=== PATIENT | female | born 1960 | race Caucasian/White ===

== ENCOUNTER → 2017-03-20 | Outpatient (CLI) | payer OTHER ==
--- NOTE | 2017-03-20 17:30 | RAD ---
History: Chronic left shoulder pain Study: Two views of the left shoulder Comparison: None Findings: There is severe osteophyte formation about the AC joint with severe osteophyte formation p rojecting inferiorly. Glenohumeral joint is unremarkable. There is no soft tissue calcification. The scapula and visualized left ribs are unremarkable. Impression: Severe inferior osteophyte formation about the AC joint which may be causing impingement Reported By:
--- NOTE | 2017-03-20 17:33 | RAD ---
History: Chronic neck pain Study: 7 views of the cervical spine Findings: There is normal alignment with moderate C5-6 and C6-7 disc space narrowing. There are mild osteophytes about the disc spaces. However there is severe osteophytes about the mid cervical facet joints, right worse than left. No significant uncovertebral joint spurring is demonstrated. Impression: Severe facet joint osteoarthritis and more moderate lower cervical degenerative disc dis ease Reported By:
== END | disposition home or self-care (01) | DRG 556 ==
LOC: RAD 16:33
PROVIDERS: ATTEND Nurse Practitioner Family
DX: M25.512 Pain in left shoulder (principal); M47.892 Other spondylosis, cervical region; M54.2 Cervicalgia; M25.712 Osteophyte, left shoulder
CPT/HCPCS: 72050; 73030

== ENCOUNTER → 2017-04-02 | Outpatient (CLI) | payer OTHER ==
--- NOTE | 2017-04-02 19:41 | MRI ---
Indication: Pain. Exam: MRI left shoulder. Technique: Routine multiplanar multisequence imaging was performed through the left shoulder. Findings: The glenohumeral joint is intact. No fracture or dislocation is seen. The bone marrow sign al is normal throughout. The biceps tendon is intact and in good position. The labrum is intact in g ood position. There is mild fluid signal at the insertion site of the supraspinatus tendon with no s ignificant retraction. The infraspinatus tendon is mildly thickened but intact and there is a small amount of fluid in the subacromial and subdeltoid bursa. There are moderate hypertrophic changes of the AC joint with hooking of the acromion causing moderate narrowing of the acromiohumeral space. Th e bone marrow signal is normal throughout. The labrum and biceps tendon appear intact and in good po sition. There is no significant joint effusion. Impression: Small full-thickness tear at the insertion site of the supraspinatus tendon . Mild infraspinatus tendinopathy and mild subacromial and subdeltoid bursitis . Moderate hypertrophic changes of the AC joint and hooking of the acromion causing moderate narrowing of the acromiohumeral space. Reported By:
== END | disposition home or self-care (01) ==
LOC: RAD 15:44
PROVIDERS: ATTEND Nurse Practitioner Family
DX: M25.512 Pain in left shoulder (principal); S46.812A Strain of other muscles, fascia and tendons at shoulder and upper arm level, left arm, initial encounter; X58.XXXA Exposure to other specified factors, initial encounter; M67.814 Other specified disorders of tendon, left shoulder; M75.52 Bursitis of left shoulder
CPT/HCPCS: 73221

== ENCOUNTER → 2017-06-18 | Outpatient (CLI) | payer OTHER ==
--- NOTE | 2017-06-18 11:00 | MRI ---
MRI SPINE CERVICAL WITHOUT CONTRAST CLINICAL HISTORY: 56-year-old female with neck pain and left radicular symptoms. COMPARISON: C-spine radiographs 03/20/2017. Technique: Multiplanar, multisequence MRI images of the cervical spine were obtained without the adm inistration of intravenous contrast. FINDINGS: Straightening of the cervical lordosis as imaged. Alignment is maintained. The craniocervic al junction is normal. Vertebral body and disc space height are maintained. Vertebral marrow and inte rvertebral disc space signal are normal. Cord signal is normal. The visualized posterior fossa stru ctures are normal. C2-C3: No central canal or neural foraminal stenosis. C3-C4: Uncovertebral and facet joint hypertrophy combine to produce mild right neural foraminal steno sis. No central canal stenosis. C4-C5: Uncovertebral and facet joint hypertrophy produce mild bilateral neural foraminal stenosis wit hout central canal stenosis. C5-C6: Central disc osteophyte that produces mild contour deformity of the ventral cord without signa l change. Uncovertebral facet joint hypertrophy without neural foraminal stenosis. C6-C7: Broad-based disc osteophyte with a left central component that produces mild flattening of the left ventral cord without cord signal change. Uncovertebral facet joint hypertrophy produce mild to moderate left neural foraminal stenosis. C7-T1: No central canal or neural foraminal stenosis. Subcentimeter bilateral foraminal meningeal cysts at T1-T2. Paraspinous soft tissues are unremarkable . IMPRESSION: 1. 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 2. See level by level descriptions above. Reported By:
== END | disposition home or self-care (01) | DRG 74 ==
LOC: RAD 09:19
PROVIDERS: ATTEND Nurse Practitioner Family
DX: M54.12 Radiculopathy, cervical region (principal); M48.02 Spinal stenosis, cervical region; M25.78 Osteophyte, vertebrae; M50.323 Other cervical disc degeneration at C6-C7 level; M47.892 Other spondylosis, cervical region; M53.82 Other specified dorsopathies, cervical region
CPT/HCPCS: 72141